=== PATIENT | female | born 1965 | race Caucasian/White ===

== ENCOUNTER 2016-09-24 14:29 | Observation (INO) | payer OTHER ==
[~2016-09-24] VITALS: Ht 167.6 cm; Wt 79.4 kg
[2016-09-24 15:39] LABS: HEMOGLOBIN 15.6 gm/dl (12.3-15.3); RED BLOOD COUNT 4.96 M/UL (4.00-5.10); WHITE BLOOD COUNT 10.4 K/UL (4.5-11.0)
[2016-09-24 16:32] LABS: BUN/CREATININE RATIO 18 (0-10)
[2016-09-24] MEDS ORDERED: ESTRACE0.5 MG PO (20:29)
[2016-09-25 04:23] LABS: RED BLOOD COUNT 4.71 M/UL (4.00-5.10); WHITE BLOOD COUNT 10.3 K/UL (4.5-11.0)
[2016-09-25 04:42] LABS: BUN/CREATININE RATIO 24 (0-10)
[2016-09-25] MEDS ORDERED: ASPIR 8181 MG PO (19:40)
[2016-09-25] MEDS ORDERED: LOPRESSOR 25 MG25 MG PO (19:41)
== END 2016-09-25 20:44 | disposition home or self-care (01) ==
LOC: ER1 14:29 → ZEROF 18:25 → M/S 19:50
PROVIDERS: Student in an Organized Health Care Education/Training Program; ADMIT Internal Medicine
DX: R20.9 Unspecified disturbances of skin sensation (principal); R73.03 Prediabetes; R74.0 Nonspecific elevation of levels of transaminase and lactic acid dehydrogenase [LDH]; R07.9 Chest pain, unspecified; I10 Essential (primary) hypertension; Z79.82 Long term (current) use of aspirin; Z79.899 Other long term (current) drug therapy; Z90.710 Acquired absence of both cervix and uterus; Z82.3 Family history of stroke; Z83.3 Family history of diabetes mellitus
CPT/HCPCS: ECHO; 36415; 70544; 70551; 71010; 80053; 80061; 82550; 82553; 83036; 83735; 83874; 83880; 84484; 85025; 85379; 93005; 93306; 96372; 99285; G0378; J0360